=== PATIENT | female | born 2005 | race Caucasian/White ===

== ENCOUNTER 2023-01-30 06:48 | Emergency (ER) | payer MEDICAID ==
[~2023-01-30] VITALS: Ht 157.5 cm; Wt 59.0 kg
[2023-01-30 06:53] VITALS: BP 120/75; PULSE 90; RESP 16; TEMP 100.1; O2SAT 100
[2023-01-30] MEDS ORDERED: KETOROLAC 30MG/ML VIAL IV STA (07:19)
[2023-01-30] MEDS ORDERED: ONDANSETRON HCL 4MG/2ML INJ IV STA (07:19)
[2023-01-30] MEDS ORDERED: SODIUM CHLORIDE 0.9% 1,000 ML IV ONE (07:30)
[2023-01-30 08:10] LABS: HEMATOCRIT. 46.7 % (36.0-48.0); HEMOGLOBIN. 15.8 g/dL (12.0-16.0); MEAN CORPUSCULAR HEMOGLOBIN 30.2 pg (28.0-32.0); MEAN CORPUSCULAR HGB CONC 33.8 g/dL (31.0-37.0); MEAN CORPUSCULAR VOLUME 89.4 fL (81.0-99.0); MEAN PLATELET VOLUME 8.3 fl (7.4-10.4); PLATELET 235 x1000/uL (130-400); RED BLOOD CELL COUNT 5.22 mill/uL (4.2-5.4); RED CELL DISTRIBUTION WIDTH 13.8 % (11.6-14.6); WHITE BLOOD COUNT 7.9 x1000/uL (4.5-11.0)
[2023-01-30 08:11] LABS: DIFFERENTIAL COMMENT 1
[2023-01-30 08:20] LABS: ALANINE AMINOTRANSFERASE 26 IU/L (10-49); ALBUMIN 4.7 g/dL (3.2-4.8); ASPARTATE AMINOTRANSFERASE 66 IU/L (<34); BILIRUBIN TOTAL 0.5 mg/dL (0.1-1.0); CARBON DIOXIDE 19 mEq/L (21-32); CHLORIDE 105 mEq/L (98-107); CREATININE 0.7 mg/dL (0.6-1.0); GLUCOSE 121 mg/dL (70-105); POTASSIUM 5.7 mEq/L (3.5-5.1); PROTEIN TOTAL 7.4 g/dL (6.0-8.3); SODIUM 133 mEq/L (136-145)
[2023-01-30 08:22] LABS: HCG SCREEN NEGATIVE
[2023-01-30 08:24] LABS: UREA NITROGEN BLOOD < 5 mg/dL (9-23)
[2023-01-30 09:29] LABS: PLATELET ESTIMATE NORMAL
== END 2023-01-30 14:37 | disposition home or self-care (01) ==
LOC: ER 06:48
DX: R10.9 Unspecified abdominal pain (principal)
CPT/HCPCS: 99285; 74176; 96374; 96361; 96375; 80053; 84703; 83690; 85025; 36415; J1885; J2405; J7030